=== PATIENT | female | born 1995 | race Caucasian/White ===

== ENCOUNTER 2017-05-12 09:10 | Emergency (ER) | payer MEDICAID, OTHER ==
[2017-05-12 09:18] VITALS: BP 131/84; PULSE 68; RESP 16; TEMP 97.2; O2SAT 98
--- NOTE | 2017-05-12 10:19 | C.PDOC ---
History Of Present Illness 22 year old female presents to the emergency room complaining of left lower dental pain, ongoing for 1 week. She notes pain has been constant for the past 3 days. Denies any fever or chills. Patient has not seen a dentist yet. Time Seen by Provider: 05/12/17 09:43 Chief Complaint (Nursing): Dental Pain History Per: Patient History/Exam Limitations: no limitations Onset/Duration Of Symptoms: Days (x 1 week) Current Symptoms Are (Timing): Still Present Past Medical History Reviewed: Historical Data, Nursing Documentation, Vital Signs Vital Signs: Last Vital Signs Temp 97.2 F L 05/12/17 09:15 Pulse 68 05/12/17 09:15 Resp 16 05/12/17 09:15 BP 131/84 05/12/17 09:15 Pulse Ox 98 05/12/17 10:26 - Medical History PMH: No Chronic Diseases Family History: States: Diabetes - Social History Hx Tobacco Use: Yes Hx Alcohol Use: Yes Hx Substance Use: No - Immunization History Hx Tetanus Toxoid Vaccination: Yes Hx Influenza Vaccination: Yes Review Of Systems Except As Marked, All Systems Reviewed And Found Negative. Constitutional: Negative for: Fever, Chills ENT: Positive for: Other (left dental pain) Physical Exam - Physical Exam Appears: Non-toxic, No Acute Distress Skin: Normal Color, Warm, Dry Head: Atraumatic, Normacephalic Eye(s): bilateral: Normal Inspection, PERRL, EOMI Ear(s): Bilateral: Normal Oral Mucosa: Moist Teeth: Tender To Palpation (at tooth #19, with no redness noted), Other (No intraoral abscess) Gingiva: Normal Appearing Throat: Normal Neck: Normal, Supple Cardiovascular: Rhythm Regular, No Murmur Respiratory: Normal Breath Sounds, No Accessory Muscle Use Neurological/Psych: Oriented x3, Normal Speech ED Course And Treatment O2 Sat by Pulse Oximetry: 98 (RA) Pulse Ox Interpretation: Normal Medical Decision Making Medical Decision Making: Impression: Toothache Patient is medically stable for discharge, provided with rx for Motrin and Lidocaine mouth rinse (states pain much improved after viscous lidocaine). Advised patient to follow up with dentist, referral provided. There is agreement to discharge plan. Return if symptoms worsen or changes arise. Disposition Counseled Patient/Family Regarding: Diagnosis, Need For Followup, Rx Given - Disposition Disposition: HOME/ ROUTINE Disposition Time: 10:20 Condition: STABLE Additional Instructions: Ms. Robertson, thank you for letting us take care of you today. Return to the ER if your symptoms worsen, or if any problems. Take the medication listed below as prescribed. You have been provided a list of dentists. Make sure you follow up with the dentist this week. Prescriptions: Ibuprofen [Motrin Tab] 1 tab PO TID PRN #30 tab PRN Reason: Pain, Moderate (4-7) Lidocaine 2% Viscous 15 ml MM QID #1 bottle Instructions: Toothache (ED) Forms: General Discharge Instructions, [facility] (Turkmen) Print Language: ARABIC - Clinical Impression Clinical Impression: Toothache - Scribe Statement The provider has reviewed the documentation as recorded by the Gloria Lindquist Provider Attestation: All medical record entries made by the Gloria were at my direction and personally dictated by me. I have reviewed the chart and agree that the record accurately reflects my personal performance of the history, physical exam, medical decision making, and the department course for this patient. I have also personally directed, reviewed, and agree with the discharge instructions and disposition.
--- NOTE | 2017-05-12 10:20 | C.PDOC ---
Time Seen by Provider: 05/12/17 09:43 Chief Complaint (Nursing): Dental Pain Past Medical History Vital Signs: Last Vital Signs Temp 97.2 F L 05/12/17 09:15 Pulse 68 05/12/17 09:15 Resp 16 05/12/17 09:15 BP 131/84 05/12/17 09:15 Pulse Ox 98 05/12/17 09:15 - Social History Hx Alcohol Use: No Hx Substance Use: No - Immunization History Hx Tetanus Toxoid Vaccination: Yes Hx Influenza Vaccination: Yes ED Course And Treatment O2 Sat by Pulse Oximetry: 98 Disposition - Disposition Disposition: HOME/ ROUTINE Disposition Time: 10:17 Condition: IMPROVED Additional Instructions: Ms. Robertson, thank you for letting us take care of you today. Return to the ER if your symptoms worsen, or if any problems. Take the medication listed below as prescribed. You have been provided a list of dentists. Make sure you follow up with the dentist this week. Prescriptions: Ibuprofen [Motrin Tab] 1 tab PO TID PRN #30 tab PRN Reason: Pain, Moderate (4-7) Lidocaine 2% Viscous 15 ml MM QID #1 bottle Instructions: Toothache (ED) Forms: [facility] (Czech), General Discharge Instructions Print Language: VIETNAMESE - Clinical Impression Clinical Impression: Toothache
== END 2017-05-12 10:24 | disposition home or self-care (01) ==
LOC: C.ER 09:10
DX: K08.89 Other specified disorders of teeth and supporting structures (principal)